=== PATIENT | male | born 1945 | race Two or more races ===

== ENCOUNTER 2018-09-30 20:58 | Inpatient (IN) | payer MEDICARE ==
[2018-09-30] MEDS ORDERED: MAG HYDROX/AL HYDROX/SIMETH 30 ML UDC PO PRN (22:00)
[2018-09-30] MEDS ORDERED: LORAZEPAM 0.5 MG TABLET PO PRN (22:00)
[2018-09-30] MEDS ORDERED: TEMAZEPAM 7.5 MG CAPSULE PO PRN (22:00)
[2018-09-30] MEDS ORDERED: MAGNESIUM HYDROXIDE 30 ML UDC PO PRN (22:00)
[2018-09-30] MEDS ORDERED: BLOOD SUGAR DIAGNOSTIC 1 EACH STRIP IN ONE (22:00)
[2018-09-30] MEDS ORDERED: ACETAMINOPHEN 325 MG TABLET PO PRN (22:00)
[2018-10-01] MEDS ORDERED: IBUP-1953 PO (09:14)
[2018-10-01] MEDS ORDERED: TRAM50TA2 PO (09:14)
[2018-10-01] MEDS: LOSARTAN POTASSIUM 50 MG TABLET PO SCH (16:30)
[2018-10-01] MEDS ORDERED: IBUPROFEN 400 MG TABLET PO PRN (20:00)
[2018-10-01] MEDS ORDERED: TRAMADOL HCL 50 MG TABLET PO PRN (20:00)
[2018-10-02] MEDS: LOSARTAN POTASSIUM 50 MG TABLET PO SCH (08:54)
[2018-10-02] MEDS: SERTRALINE HCL 50 MG TABLET PO SCH (12:15)
[2018-10-02] MEDS ORDERED: LOSARTAN POTASSIUM 50 MG TABLET PO SCH (16:00)
[2018-10-03] MEDS: SERTRALINE HCL 50 MG TABLET PO SCH (08:45)
[2018-10-03] MEDS: LOSARTAN POTASSIUM 50 MG TABLET PO SCH (08:45)
[2018-10-04] MEDS: LOSARTAN POTASSIUM 50 MG TABLET PO SCH (08:08)
[2018-10-04] MEDS: SERTRALINE HCL 50 MG TABLET PO SCH (08:08)
== END 2018-10-04 13:10 | DRG 885 ==
DX: F33.2 Major depressive disorder, recurrent severe without psychotic features (principal); E43 Unspecified severe protein-calorie malnutrition; R45.851 Suicidal ideations; E87.1 Hypo-osmolality and hyponatremia; I10 Essential (primary) hypertension; E86.1 Hypovolemia; R74.0 Nonspecific elevation of levels of transaminase and lactic acid dehydrogenase [LDH]; Z68.26 Body mass index [BMI] 26.0-26.9, adult